=== PATIENT | female | born 1945 | race Caucasian/White ===

== ENCOUNTER 2019-03-15 23:02 | Emergency (ER) | payer OTHER ==
[~2019-03-15] VITALS: Ht 152.4 cm; Wt 72.6 kg
[~2019-03-15 23:02] MED LIST: ATENOLOL100 MG PO; CATAFLAM50 MG PO; ISORDIL10 MG PO; PARA COLESTEROL; [UNRECOGNIZED DRUG - OTHER]
[2019-03-15] MEDS ORDERED: VITAMIN B-121000 MCG (23:27)
[2019-03-15] MEDS ORDERED: TOLTERODINE TART4 MG (23:28)
[2019-03-15] MEDS ORDERED: BACLOFEN10 MG (23:29)
== END 2019-03-16 04:12 ==
LOC: ER 23:02
DX: R40.0 Somnolence (principal); E86.0 Dehydration

== ENCOUNTER 2021-01-15 10:28 | Outpatient (CLI) | payer OTHER ==
[~2021-01-15 10:28] MED LIST changes: +BACLOFEN10 MG; +TOLTERODINE TART4 MG; +VITAMIN B-121000 MCG
== END 2021-01-15 10:44 | disposition home or self-care (01) ==
LOC: RAD 10:28
PROVIDERS: ATTEND Student in an Organized Health Care Education/Training Program
DX: M51.36 Other intervertebral disc degeneration, lumbar region (principal); M54.16 Radiculopathy, lumbar region; M48.061 Spinal stenosis, lumbar region without neurogenic claudication

== ENCOUNTER → 2021-02-21 | Outpatient (CLI) | payer OTHER | END | disposition home or self-care (01) | LOC: LAB 09:15 | DX: D75.1 Secondary polycythemia (principal); Z51.81 Encounter for therapeutic drug level monitoring ==

== ENCOUNTER 2024-06-17 08:57 | Outpatient (CLI) | payer OTHER ==
[~2024-06-17 08:57] MED LIST changes: +ANCEF 1 GM IV; +ATORVASTATIN CA20 MG; +AVAPRO300 MG PO; +BICARSIM80 MG; +CATAFLAN PO; +CHILDREN'S ASPI81 MG PO; +COMPLEX B-101 TAB.SA PO; +COZAAR100 MG PO; +DICY20TA; +GLUMETZA500 MG PO; +ISOSORBIDE DINI30 MG PO; +JANUMET XR 1001 EACH PO; +LESINOPRIL PO; +LOSARTAN-HCTZ1 EAC2 PO; +NAMENDA1 EACH PO; +NAMENDA10 MG; +NAMENDA10 MG PO; +NAPROXEN500 MG; +NORVASC2.5 M1; +ONDANSETRON ODT4 MG SL; +PEPCID AC20 MG PO; +QUINAPRIL-HCTZ1 TA2; +TOPROL XL50 M1 PO; +TRAM1TAB98 PO; +VITAMIN B-1000 MCG/2 IJ; +VITAMIN D22000 UNIT PO; +VOLTAREN100 GM
== END 2024-06-17 09:07 | disposition home or self-care (01) ==
LOC: TOM 08:57
PROVIDERS: ATTEND Radiology Diagnostic Radiology
DX: C18.7 Malignant neoplasm of sigmoid colon (principal); C18.3 Malignant neoplasm of hepatic flexure; Z80.0 Family history of malignant neoplasm of digestive organs; Z12.11 Encounter for screening for malignant neoplasm of colon

== ENCOUNTER 2024-06-20 12:28 | Outpatient (CLI) | payer OTHER | END 2024-06-20 12:29 | disposition home or self-care (01) | LOC: NUCLEAR 12:28 | DX: M81.8 Other osteoporosis without current pathological fracture (principal) ==

== ENCOUNTER 2024-12-10 11:32 | Emergency (ER) | payer OTHER ==
[~2024-12-10] VITALS: Ht 157.5 cm; Wt 81.6 kg
[2024-12-10] MEDS ORDERED: MEMANTINE HCL10 MG PO (11:44)
[2024-12-10] MEDS ORDERED: METOPROLOL SUCC50 MG PO (11:44)
[2024-12-10] MEDS ORDERED: METFORMIN HCL850 M1 PO (11:44)
[2024-12-10] MEDS ORDERED: LOSARTAN POTAS100 MG PO (11:45)
[2024-12-10] MEDS ORDERED: ROSUVASTATIN CA20 MG PO (11:45)
[2024-12-10] MEDS ORDERED: TRAMADOL HCL 50 MG TABLET PO ONE (12:15)
[2024-12-10] MEDS ORDERED: NORFLEX100MG PO (13:44)
== END 2024-12-10 14:36 | disposition home or self-care (01) ==
LOC: ER 11:33
DX: S00.03XA Contusion of scalp, initial encounter (principal); W19.XXXA Unspecified fall, initial encounter; Y93.89 Activity, other specified; Y92.098 Other place in other non-institutional residence as the place of occurrence of the external cause; Y99.8 Other external cause status; I10 Essential (primary) hypertension; E11.9 Type 2 diabetes mellitus without complications; Z79.84 Long term (current) use of oral hypoglycemic drugs